=== PATIENT | female | born 1980 | race Caucasian/White ===

== ENCOUNTER → 2020-09-17 16:21 | Outpatient (CLI) | payer OTHER, SELFPAY ==
--- NOTE | 2020-09-17 16:23 | DI.MRI.S_ITS ---
PROCEDURE: MR HEAD/BRAIN WO/W CON INDICATIONS: eval for suspected trigeminal neuralgia. Left facial pain TECHNIQUE: Noncontrast sagittal T1 spin echo, axial T2 fast spin echo, axial FLAIR, axial gradient echo, axial diffusion and ADC through the brain. Axial/sagittal/coronal 3-D CISS, thin-slice axial T1 spin echo with fat saturation through the skull base. After the administration of contrast, axial and coronal thin-slice T1 spin echo with fat saturation through the skull base, axial T1 spin echo with fat saturation through the brain. COMPARISON: None. FINDINGS: Image quality: Excellent. Trigeminal nerves: Trigeminal nerves and trigeminal nerve divisions follow normal course and abnormal contour. No abnormal mass or suspicious postcontrast enhancement identified along the courses of the trigeminal nerves are trigeminal nerve divisions. Cavernous sinus demonstrates normal postcontrast enhancement. CSF spaces: Ventricles are normal in size and shape. No extra-axial fluid collections. Basal cisterns are patent. Brain: No intracranial bleeds or mass effects. No abnormal intracranial enhancement. Diffusion weighted images show no acute ischemic insults. Bass-white matter interface is intact. Brainstem is normal. Normal intravascular flow voids are present. Dural sinuses demonstrate normal postcontrast enhancement. Skull and face: Calvarial marrow signal is normal. Orbits appear normal. Sinuses: Sinuses and mastoids appear clear. IMPRESSION: 1. Normal trigeminal nerves. 2. No abnormal intracranial mass or mass effect. 3. No suspicious postcontrast enhancement. 4. No abnormal intracranial signal. Dictated by: Patricia Hui MD, PhD on 09/17/2020 at 17:56 Approved by: Patricia Hui MD, PhD on 09/17/2020 at 18:00
== END ==
PROVIDERS: PCP Registered Nurse Diabetes Educator; Referring Provider Registered Nurse Diabetes Educator; Visit Provider Registered Nurse Diabetes Educator
DX: G50.0 Trigeminal neuralgia (principal)
CPT/HCPCS: 70553

== ENCOUNTER 2021-04-03 16:42 | Emergency (ER) | payer OTHER, SELFPAY ==
[2021-04-03 16:58] VITALS: BP 134/86; PULSE 77; RESP 16; TEMP 36.7; O2SAT 98; BMI 21.6
--- NOTE | 2021-04-03 18:51 | DI.RAD.S_ITS ---
PROCEDURE: XR CHEST 1V INDICATIONS: chest pain TECHNIQUE: One view of the chest was acquired. COMPARISON: None. FINDINGS: Surgical changes and devices: None. Lungs and pleura: Lungs are clear. No pleural effusions or pneumothorax. Mediastinum: Mediastinal contours appear normal. Heart size is normal. Bones and chest wall: No suspicious bony lesions. Overlying soft tissues appear unremarkable. IMPRESSION: No acute cardiopulmonary disease. Dictated by: Xiomy Seay M.D. on 04/03/2021 at 19:23 Approved by: Xiomy Seay M.D. on 04/03/2021 at 19:23
--- NOTE | 2021-04-03 18:52 | ED.CHESTPAIN ---
HPI - Chest Pain <WILFRIDO Morales - Last Filed: 04/03/21 19:26> General Chief Complaint: Chest Pain Stated Complaint: Chest Pain/COVID 2nd Dose Last Week Time Seen by Provider: 04/03/21 18:45 Mode of arrival: Ambulatory History of Present Illness HPI narrative: 40-year-old female presents to the emergency department today for concern about chest pain and pressure which she has been experiencing since 2:00 p.m. today patient reports she had this another time on March 15. Patient reports on March 15 it went away after approximately 40 minutes and today has been persistent since 2:00 p.m. without improving. Patient denies any radiation of pain, describes it as heaviness and sharp on her right upper chest below her clavicle and her left upper chest below her left clavicle. She denies any nausea or vomiting, denies any diaphoresis, denies any jaw pain or radiation of this pain anywhere else, denies any new abdominal pain, back pain, dizziness, vision changes swelling of her lower extremities, known vascular disease, known cardiac history, history of cardiac disease in her family, denies any possibility that she could be reports the has had a vasectomy and her children are grown. Patient reports that she had her 1st Pfizer COVID vaccine on March 02, then she had this chest pain episode on March 15, last week she had her 2nd COVID vaccine and today she has these symptoms so she is concerned about a relation of her vaccination with her pain. Patient is not on any control, denies any recent illness, denies any URI symptoms or fever, denies any abdominal pain or changes to her urine or stool. Patient denies any palpitations, neck pain, numbness or tingling. Patient reports her Pfizer vaccine was most recently on her left arm. Severity scale (1-10): 6 Relieving factors: nothing Exacerbating factors: nothing Associated symptoms: other Related Data Home Medications Medication Instructions Recorded Confirmed No Known Home Medications 03/19/20 09/02/20 Allergies Allergy/AdvReac Type Severity Reaction Status Date / Time levofloxacin [From Levaquin] Allergy Rash Verified 04/03/21 17:07 Penicillins Allergy Rash Verified 04/03/21 17:06 Sulfa (Sulfonamide Allergy Rash Verified 04/03/21 17:06 Antibiotics) Review of Systems <WILFRIDO Morales - Last Filed: 04/03/21 19:26> Review of Systems Narrative: General: denies fever, chills, diaphoresis, dizziness Head/Neck: denies headache, neck pain Eyes: denies visual changes, eye pain Cardio: Endorses upper right chest pressure and mild pressure on her left upper chest, denies palpitations Respiratory: denies shortness of breath, cough GI: denies abdominal pain, nausea, vomiting, or diarrhea : denies dysuria, hematuria MSK: denies joint pain, muscle weakness Skin: denies rash, itching Neuro: denies numbness, tingling Patient History <WILFRIDO Morales - Last Filed: 04/03/21 19:26> Medical History Heavy menstrual period Vitiligo (~2018) Surgical History Anesthesia History of recent childbirth Family History Father History of heart disease Hypertension Hyperlipidemia Mother Hyperlipidemia Hypertension Rheumatoid arthritis Cancer of kidney Grandfather Accident Grandfather History of heart disease Grandmother Dementia Social History Smoking Status: Never smoker Smoking Status: Never smoker Substance Use Type: does not use Exam <WILFRIOD Morales - Last Filed: 04/03/21 19:26> Narrative Exam Narrative: Independently reviewed vitals signs and nursing notes. General: Awake, alert, nontoxic, no cardiorespiratory distress Head/Neck: Atraumatic, neck full range of motion Eyes: EOMI, conjunctiva normal Nose: nares patent, no rhinorrhea Mouth/Throat: moist mucus membranes, posterior pharynx normal, no oral lesions Cardio: Regular rate and rhythm, no peripheral edema, S1-S2 without additional heart sounds, no murmurs or rubs Respiratory: respirations unlabored without wheezing, stridor, or rales. No retractions. GI: Abdomen soft, nontender MSK: Moves all extremities, neurovascularly intact Skin: Normal capillary refill, no rash Neuro: Normal speech and cognition, normal gait Initial Vital Signs Initial Vital Signs: Vital Signs Temperature 98.1 F 04/03/21 16:58 Pulse Rate 77 04/03/21 16:58 Respiratory Rate 16 04/03/21 16:58 Blood Pressure 134/86 04/03/21 16:58 Pulse Oximetry 98 04/03/21 16:58 <Anabella Anaya MD - Last Filed: 04/04/21 07:02> Initial Vital Signs Initial Vital Signs: Vital Signs Temperature 98.1 F 04/03/21 16:58 Pulse Rate 77 04/03/21 16:58 Respiratory Rate 16 04/03/21 16:58 Blood Pressure 134/86 04/03/21 16:58 Pulse Oximetry 98 04/03/21 16:58 Course <WILFRIDO Morales - Last Filed: 04/03/21 19:26> Orders Ordered: ED Orders 04/03/21 17:07 EKG-12 Lead Stat 04/03/21 18:51 XR chest 1V Stat Complete Blood Count AUTO DIFF Stat Comprehensive Metabolic Panel Stat Lipase Stat Partial Thromboplastin Time Stat Procalcitonin Stat Prothrombin Time INR Stat Troponin & CK Cardiac Panel Stat 04/03/21 18:52 TSH [Thyroid Stimulating Hormone] Stat 04/03/21 18:53 HCG Quantitative /Beta subunit Stat Vital Signs Vital signs: Vital Signs - 8 hr 04/03/21 16:58 Temperature 98.1 F Pulse Rate 77 Respiratory Rate 16 Blood Pressure 134/86 Pulse Oximetry 98 <Anabella Anaya MD - Last Filed: 04/04/21 07:02> Orders Ordered: ED Orders 04/03/21 17:07 EKG-12 Lead Stat 04/03/21 18:51 XR chest 1V Stat Complete Blood Count AUTO DIFF Stat Comprehensive Metabolic Panel Stat Lipase Stat Partial Thromboplastin Time Stat Procalcitonin Stat Prothrombin Time INR Stat Troponin & CK Cardiac Panel Stat 04/03/21 18:52 TSH [Thyroid Stimulating Hormone] Stat 04/03/21 18:53 HCG Quantitative /Beta subunit Stat Vital Signs Vital signs: Vital Signs - 8 hr 04/03/21 16:58 Temperature 98.1 F Pulse Rate 77 Respiratory Rate 16 Blood Pressure 134/86 Pulse Oximetry 98 MDM - Chest Pain <WILFRIDO Morales - Last Filed: 04/03/21 19:26> Lab Data Result diagrams: 04/03/21 19:02 04/03/21 19:02 Labs: Lab Results 04/03/21 04/03/21 04/03/21 Range/Units 19:02 19:02 19:02 WBC 9.3 (4.5-11.0) X10^3/uL RBC 4.75 (4.0-5.2) X10^6/uL Hgb 13.9 (12.0-16.0) g/dL Hct 40.7 (36-46) % MCV 85.7 (80-100) fL MCH 29.3 (26-34) PG MCHC 34.2 (30-36) % RDW 12.9 (11.6-14.8) % Plt Count 336 (150-400) X10^3/uL Neut % (Auto) 61.9 (50-75) % Lymph % (Auto) 29.3 (25-40) % [place] % (Auto) 6.6 (3-14) % Eos % (Auto) 1.7 L (2-4) % Baso % (Auto) 0.5 (0-2) % Neut # (Auto) 5800 (6535-9639) /uL Lymph # (Auto) 2700 (4654-1255) /uL [place] # (Auto) 600 (0-900) /uL Eos # (Auto) 200 (0-450) /uL Baso # (Auto) 0 (0-100) /uL PT 11.2 (10.1-12.7) SECONDS INR 1.0 (0.9-1.3) APTT 32 (26.4-36.2) SECONDS Sodium 138 (137-145) mmol/L Potassium 3.9 (3.4-5.1) mmol/L Chloride 100 (98-107) mmol/L Carbon Dioxide 30 (22-32) mmol/L BUN 20 H (7-17) mg/dL Creatinine 0.85 (0.52-1.04) mg/dL Estimated GFR > 60.0 (>60) mL/min BUN/Creatinine Ratio 23.5 H (6-22) Glucose 100 (70-100) mg/dL Calcium 9.5 (8.4-10.2) mg/dL Total Bilirubin 0.3 (0.2-1.3) mg/dL AST 26 (14-36) IU/L ALT 18 (<35) IU/L Alkaline Phosphatase 56 (38-126) U/L Total Creatine Kinase 48 (30-135) U/L CK-MB (CK-2) TNP CK-MB (CK-2) Rel Index TNP Troponin I < 0.012 (0.01-0.034) ng/mL Total Protein 7.4 (6.3-8.2) g/dL Albumin 4.3 (3.5-5.0) g/dL Globulin 3.1 (1.7-4.1) g/dL Albumin/Globulin Ratio 1.4 (1.0-2.8) Lipase 80 (23-300) U/L Procalcitonin Cancelled TSH (0.47-4.68) uIU/mL HCG, Quant mIU/mL 04/03/21 04/03/21 Range/Units 19:02 19:02 WBC (4.5-11.0) X10^3/uL RBC (4.0-5.2) X10^6/uL Hgb (12.0-16.0) g/dL Hct (36-46) % MCV (80-100) fL MCH (26-34) PG MCHC (30-36) % RDW (11.6-14.8) % Plt Count (150-400) X10^3/uL Neut % (Auto) (50-75) % Lymph % (Auto) (25-40) % [place] % (Auto) (3-14) % Eos % (Auto) (2-4) % Baso % (Auto) (0-2) % Neut # (Auto) (1214-2530) /uL Lymph # (Auto) (5717-9225) /uL [place] # (Auto) (0-900) /uL Eos # (Auto) (0-450) /uL Baso # (Auto) (0-100) /uL PT (10.1-12.7) SECONDS INR (0.9-1.3) APTT (26.4-36.2) SECONDS Sodium (137-145) mmol/L Potassium (3.4-5.1) mmol/L Chloride (98-107) mmol/L Carbon Dioxide (22-32) mmol/L BUN (7-17) mg/dL Creatinine (0.52-1.04) mg/dL Estimated GFR (>60) mL/min BUN/Creatinine Ratio (6-22) Glucose (70-100) mg/dL Calcium (8.4-10.2) mg/dL Total Bilirubin (0.2-1.3) mg/dL AST (14-36) IU/L ALT (<35) IU/L Alkaline Phosphatase (38-126) U/L Total Creatine Kinase (30-135) U/L CK-MB (CK-2) CK-MB (CK-2) Rel Index Troponin I (0.01-0.034) ng/mL Total Protein (6.3-8.2) g/dL Albumin (3.5-5.0) g/dL Globulin (1.7-4.1) g/dL Albumin/Globulin Ratio (1.0-2.8) Lipase (23-300) U/L Procalcitonin TSH 2.15 (0.47-4.68) uIU/mL HCG, Quant < 2.4 mIU/mL ECG Data Interpretation: Ventricular rate of 72, NV interval is 0.13, QRS is 0.90, QT is 0.4 when to without any prolongation or peak, normal sinus rhythm without ST elevation MDM Narrative Medical decision making narrative: 40-year-old female presents to the emergency department today for chest pressure and pain which started at 2:00 p.m. and has been intractable. Patient reports approximately 6/10 and is sharp and heavy in nature. It is it is exacerbated by deep inspiration, not reproducible, and without radiation or other symptom. EKG shows normal sinus rhythm without ST elevation. Lab work obtained including CK, troponin, TSH, CBC, CMP and lipase. Chest x-ray is pending. Patient without any shortness of breath, chest tightness, appears nontoxic without labored respirations. Her symptoms are without any dizziness, diaphoresis, nausea or vomiting, abdominal pain, back pain, or any other symptom. I suspect that this is most likely local adenopathy and immune reactivity from her COVID vaccination. She is without any signs of infection, illness, cardiac cause for her symptoms, respiratory problem including pneumonia, thyroid disorder, and is not in any distress. I recommend she follow-up with her PCP about the lab work completed in her visit today. Patient requests to go home following having her labs drawn and being called if anything is concerning. Her case was discussed with Dr. Margaret Mejia attending ED provider, who will follow-up with patient for any critical results if they result tonight. Differential includes acute DC, thyroid storm, thrombocytopenia, palpitations, pneumonia, aortic aneurysm, aortic dissection, pancreatitis, allergic reaction. These are all much less likely without any signs of these while she was here today. <Anabella Anaya MD - Last Filed: 04/04/21 07:02> Lab Data Labs: Lab Results 04/03/21 04/03/21 04/03/21 Range/Units 19:02 19:02 19:02 WBC 9.3 (4.5-11.0) X10^3/uL RBC 4.75 (4.0-5.2) X10^6/uL Hgb 13.9 (12.0-16.0) g/dL Hct 40.7 (36-46) % MCV 85.7 (80-100) fL MCH 29.3 (26-34) PG MCHC 34.2 (30-36) % RDW 12.9 (11.6-14.8) % Plt Count 336 (150-400) X10^3/uL Neut % (Auto) 61.9 (50-75) % Lymph % (Auto) 29.3 (25-40) % [place] % (Auto) 6.6 (3-14) % Eos % (Auto) 1.7 L (2-4) % Baso % (Auto) 0.5 (0-2) % Neut # (Auto) 5800 (4676-9314) /uL Lymph # (Auto) 2700 (6190-3541) /uL [place] # (Auto) 600 (0-900) /uL Eos # (Auto) 200 (0-450) /uL Baso # (Auto) 0 (0-100) /uL PT 11.2 (10.1-12.7) SECONDS INR 1.0 (0.9-1.3) APTT 32 (26.4-36.2) SECONDS Sodium 138 (137-145) mmol/L Potassium 3.9 (3.4-5.1) mmol/L Chloride 100 (98-107) mmol/L Carbon Dioxide 30 (22-32) mmol/L BUN 20 H (7-17) mg/dL Creatinine 0.85 (0.52-1.04) mg/dL Estimated GFR > 60.0 (>60) mL/min BUN/Creatinine Ratio 23.5 H (6-22) Glucose 100 (70-100) mg/dL Calcium 9.5 (8.4-10.2) mg/dL Total Bilirubin 0.3 (0.2-1.3) mg/dL AST 26 (14-36) IU/L ALT 18 (<35) IU/L Alkaline Phosphatase 56 (38-126) U/L Total Creatine Kinase 48 (30-135) U/L CK-MB (CK-2) TNP CK-MB (CK-2) Rel Index TNP Troponin I < 0.012 (0.01-0.034) ng/mL Total Protein 7.4 (6.3-8.2) g/dL Albumin 4.3 (3.5-5.0) g/dL Globulin 3.1 (1.7-4.1) g/dL Albumin/Globulin Ratio 1.4 (1.0-2.8) Lipase 80 (23-300) U/L Procalcitonin Cancelled TSH (0.47-4.68) uIU/mL HCG, Quant mIU/mL 04/03/21 04/03/21 Range/Units 19:02 19:02 WBC (4.5-11.0) X10^3/uL RBC (4.0-5.2) X10^6/uL Hgb (12.0-16.0) g/dL Hct (36-46) % MCV (80-100) fL MCH (26-34) PG MCHC (30-36) % RDW (11.6-14.8) % Plt Count (150-400) X10^3/uL Neut % (Auto) (50-75) % Lymph % (Auto) (25-40) % [place] % (Auto) (3-14) % Eos % (Auto) (2-4) % Baso % (Auto) (0-2) % Neut # (Auto) (9095-0625) /uL Lymph # (Auto) (6740-7378) /uL [place] # (Auto) (0-900) /uL Eos # (Auto) (0-450) /uL Baso # (Auto) (0-100) /uL PT (10.1-12.7) SECONDS INR (0.9-1.3) APTT (26.4-36.2) SECONDS Sodium (137-145) mmol/L Potassium (3.4-5.1) mmol/L Chloride (98-107) mmol/L Carbon Dioxide (22-32) mmol/L BUN (7-17) mg/dL Creatinine (0.52-1.04) mg/dL Estimated GFR (>60) mL/min BUN/Creatinine Ratio (6-22) Glucose (70-100) mg/dL Calcium (8.4-10.2) mg/dL Total Bilirubin (0.2-1.3) mg/dL AST (14-36) IU/L ALT (<35) IU/L Alkaline Phosphatase (38-126) U/L Total Creatine Kinase (30-135) U/L CK-MB (CK-2) CK-MB (CK-2) Rel Index Troponin I (0.01-0.034) ng/mL Total Protein (6.3-8.2) g/dL Albumin (3.5-5.0) g/dL Globulin (1.7-4.1) g/dL Albumin/Globulin Ratio (1.0-2.8) Lipase (23-300) U/L Procalcitonin TSH 2.15 (0.47-4.68) uIU/mL HCG, Quant < 2.4 mIU/mL Discharge Plan Departure Patient Disposition: Admitted As Inpatient Clinical Impression: Chest pain <Anabella Anaya MD - Last Filed: 04/04/21 07:02> Cosign ED Attending Coschadature Attestation: I was immediately available in the department for consultation throughout this patient's visit. I agree with documentation as above. Anabella Anaya MD
[2021-04-03 19:38] LABS: HEMOLYSIS < 15 (0-50)
[2021-04-03 19:42] LABS: Add Manual Diff / Slide Review NO; Basophils Absolute Auto 0 /uL (0-100); Basophils Percent Auto 0.5 % (0-2); Eosinophils Absolute Auto 200 /uL (0-450); Eosinophils Percent Auto 1.7 % (2-4); Hematocrit 40.7 % (36-46); Hemoglobin 13.9 g/dL (12.0-16.0); Lymphocytes Absolute Auto 2700 /uL (1100-4500); Lymphocytes Percent Auto 29.3 % (25-40); Mean Corpuscular HGB Conc 34.2 % (30-36); Mean Corpuscular Hemoglobin 29.3 PG (26-34); Mean Corpuscular Volume 85.7 fL (80-100); Monocytes Absolute Auto 600 /uL (0-900); Monocytes Percent Auto 6.6 % (3-14); Neutrophils Absolute Auto 5800 /uL (1500-7000); Neutrophils Percent Auto 61.9 % (50-75); Platelet Count 336 X10^3/uL (150-400); Red Blood Cell Count 4.75 X10^6/uL (4.0-5.2); Red Cell Distribution Width 12.9 % (11.6-14.8); White Blood Cell Count 9.3 X10^3/uL (4.5-11.0)
[2021-04-03 19:44] LABS: Alanine Aminotransferase 18 IU/L (<35); Albumin 4.3 g/dL (3.5-5.0); Albumin Globulin Ratio 1.4 (1.0-2.8); Alkaline Phosphatase 56 U/L (38-126); Aspartate Aminotransferase 26 IU/L (14-36); BUN Creatinine Ratio 23.5 (6-22); Bilirubin Total 0.3 mg/dL (0.2-1.3); Blood Urea Nitrogen 20 mg/dL (7-17); Calcium 9.5 mg/dL (8.4-10.2); Carbon Dioxide 30 mmol/L (22-32); Chloride 100 mmol/L (98-107); Creatine Kinase 48 U/L (30-135); Estimated Glomerular Filt Rate > 60.0 mL/min (>60); Globulin 3.1 g/dL (1.7-4.1); Glucose 100 mg/dL (70-100); Lipase 80 U/L (23-300); Potassium 3.9 mmol/L (3.4-5.1); Prothrombin Time 11.2 SECONDS (10.1-12.7); Sodium 138 mmol/L (137-145); Total Protein 7.4 g/dL (6.3-8.2)
[2021-04-03 19:47] LABS: PTT Partial Thromboplastin Tim 32 SECONDS (26.4-36.2)
[2021-04-03 19:56] LABS: Troponin I < 0.012 ng/mL (0.01-0.034)
[2021-04-03 20:01] LABS: HCG Quantitative /Beta subunit < 2.4 mIU/mL
[2021-04-03 22:13] LABS: Thyroid Stimulating Hormone 2.15 uIU/mL (0.47-4.68)
== END 2021-04-03 19:58 | disposition admitted as inpatient to this hospital (09) ==
PROVIDERS: Emergency Provider Nurse Practitioner Critical Care Medicine; PCP Registered Nurse Diabetes Educator
DX: R07.9 Chest pain, unspecified (principal)
CPT/HCPCS: 36415; 71045; 80053; 82550; 83690; 84443; 84484; 84702; 85025; 85610; 85730; 93005; 99283

== ENCOUNTER → 2021-08-03 17:02 | Outpatient (CLI) | payer OTHER, SELFPAY ==
--- NOTE | 2021-08-03 17:03 | DI.MG.S_ITS ---
BILATERAL DIGITAL SCREENING MAMMOGRAM 3D/2D WITH CAD: 08/03/2021 CLINICAL: Baseline Exam. Routine screening. Family history of breast cancer. No prior exams were available for comparison. The tissue of both breasts is heterogeneously dense. This may lower the sensitivity of mammography. Current study was also evaluated with a Computer Aided Detection (CAD) system. No significant masses, calcifications, or other findings are seen in either breast. IMPRESSION: NEGATIVE There is no mammographic evidence of malignancy. A 1 year screening mammogram is recommended. This exam was interpreted at Station ID: [id number]. NOTE: For mammograms, a report in lay terms will be sent to the patient. Approximately 15% of breast malignancies will not be visualized mammographically. In the management of a palpable breast mass, a negative mammogram must not discourage biopsy of a clinically suspicious lesion. Electronically Signed By: Xiomy tompkins/toyin:08/04/2021 10:28:57 letter sent: Normal Exam ACR BI-RADS Category 1: Negative [id number]
== END ==
PROVIDERS: PCP Registered Nurse Diabetes Educator; Referring Provider Registered Nurse Diabetes Educator; Visit Provider Registered Nurse Diabetes Educator
DX: Z12.31 Encounter for screening mammogram for malignant neoplasm of breast (principal); Z80.3 Family history of malignant neoplasm of breast
CPT/HCPCS: 77063; 77067